=== PATIENT | female | born 1940 | race African-American/Black ===

== ENCOUNTER 2017-09-19 09:01 | Day surgery (SDC) | payer MEDICARE ==
[~2017-09-19] VITALS: Ht 157.5 cm; Wt 99.8 kg
[~2017-09-19 09:01] MED LIST: ALLEGRA-D 2424 HOUR PO; ALTOPREV60 MG; ASPIRIN EC325 MG PO; AUGMENTIN250 MG PO; AUGMENTIN500TAB PO; BENTYL10 MG PO; CALCIUM + D600 MG PO; CALCIUM600 M1 PO; CENTRUM SILVER PO; CENTRUM SILVER ULTRA PO; CETIRIZ/PSE1 TAB PO; COUMADIN2 MG OR; DEPO-MEDROL40 MG/ML IJ; FISH OIL300 MG PO; FLAGYL500 MG OR; FLEXERIL PO; FLOMAX0.4 M1; FLONASE NASAL50 MCG; FLONASE SPRAY50 MC1; FLONASE SPRAY50 MC1 NAB; FLUARIX QUADRIV1 IN1 IM; FLULAVAL IM; K-DUR/KLOR-CON10 MEQ OR; LASIX40 MG; LEVAQUIN500 MG OR; LORTAB 7.5 PO; LOVASTATIN10 MG PO; LOVASTATIN20 M1 OR; LOVASTATIN40 MG PO; LYRICA50 MG PO; Levaquin PO; MEDDOSEPAK PO; MELOXICAM7.5 MG PO; METOPROL TAR50 MG OR; METOPROL TAR50 MG PO; METOPROLOL TART50 MG PO; MULTI VIT PO; NEURONTIN300 MG PO; PREDNISONE20 MG PO; PRILOSEC20 MG PO; PROAIR HFA IN; REMERON15 MG OR; ROBITUSSIN AC10 ML PO; SINGULAIR10 MG PO; SYMBICORT 80-4.5MCG IN; TRAMADOL HCL50 MG PO; ULTRAM50 M1 PO; VENTOLIN HF1 IN; ZPAK PO; ZYRTEC-D ALG PO; ZYRTEC10 MG PO
[2017-09-19 13:01] VITALS: BP 143/67
== END 2017-09-19 11:52 | disposition home or self-care (01) ==
LOC: ENDO 09:01 → ORM 17:00
PROVIDERS: ATTEND Internal Medicine Gastroenterology
PROC: 0DBL8ZX Excision of Transverse Colon, Via Natural or Artificial Opening Endoscopic, Diagnostic (ICD-10-PCS; principal; 2017-09-19)
DX: Z12.11 Encounter for screening for malignant neoplasm of colon (principal); K57.30 Diverticulosis of large intestine without perforation or abscess without bleeding; K64.8 Other hemorrhoids; K63.5 Polyp of colon; K64.4 Residual hemorrhoidal skin tags; K21.9 Gastro-esophageal reflux disease without esophagitis; I10 Essential (primary) hypertension; E78.00 Pure hypercholesterolemia, unspecified; Z86.010 Personal history of colon polyps

== ENCOUNTER 2017-10-09 17:30 | Emergency (ER) | payer MEDICARE ==
[~2017-10-09] VITALS: Ht 157.5 cm; Wt 100.0 kg
[2017-10-09 21:26] VITALS: BP 169/95
== END 2017-10-09 21:17 | disposition short-term general hospital (02) ==
LOC: ED 17:30
DX: T17.228A Food in pharynx causing other injury, initial encounter (principal); R07.0 Pain in throat; R13.10 Dysphagia, unspecified; X58.XXXA Exposure to other specified factors, initial encounter; Y93.89 Activity, other specified; Y92.009 Unspecified place in unspecified non-institutional (private) residence as the place of occurrence of the external cause

== ENCOUNTER → 2018-12-28 | Outpatient (REF) | payer MEDICARE | END | disposition home or self-care (01) | LOC: LAB 09:01 | PROVIDERS: ATTEND Nurse Practitioner Family | DX: R53.83 Other fatigue (principal) ==

== ENCOUNTER 2023-06-18 12:55 | Emergency (ER) | payer MEDICARE ==
[2023-06-18] VITALS (10 sets, daily range): BP systolic 153–184; BP diastolic 71–92
[~2023-06-18] VITALS: Ht 157.5 cm; Wt 103.0 kg
[2023-06-18 13:39] LABS: BASO% 0.6 % (0-3); EOS% 4.9 % (0-8); HEMATOCRIT 44.1 % (37.0-47.0); HEMOGLOBIN 13.8 g/dl (12.0-16.0); IMMATURE GRANULOCYTES 0.2 % (0.0-5.0); LYMPH% 32.1 % (15-41); MEAN CELL VOLUME 87.8 fL CALC (80.0-100.0); MEAN CORPUSCULAR HGB 27.5 pG CALC (26.0-32.0); MEAN CORPUSCULAR HGB CONC 31.3 g/dL CAL (32.0-36.0); MONO% 11.2 % (2-13); NEUT# 2.73 thou/uL (2.00-7.15); RED BLOOD COUNT 5.02 mill/uL (4.20-5.60); RED CELL DISTRI WIDTH 12.4 % (11.5-15.5)
[2023-06-18 13:54] LABS: ALBUMIN 4.1 g/dL (3.2-5.0); ALKALINE PHOSPHATASE 79 u/l (38-126); ANION GAP 12 (6-22 (CALC)); BUN 10 mg/dL (8-23); BUN/CREATININE RATIO 15 (12-20 (CALC)); CARBON DIOXIDE 29 mmol/l (22-30); CHLORIDE 102 mmol/l (95-108); CREATININE 0.7 mg/dL (0.5-1.0); GFR FOR AFR.AMER. > 60 ML/MIN (>=60 (CALC)); GFR OTHER RACES > 60 ML/MIN (>=60 (CALC)); POTASSIUM 3.5 mmol/l (3.5-5.1); SGOT/AST 31 u/l (9-36); SODIUM 139 mmol/l (137-146)
== END 2023-06-18 18:21 | disposition short-term general hospital (02) ==
LOC: ED 12:55
PROVIDERS: Family Medicine
DX: R91.8 Other nonspecific abnormal finding of lung field (principal); J90 Pleural effusion, not elsewhere classified; I10 Essential (primary) hypertension; E78.5 Hyperlipidemia, unspecified